=== PATIENT | female | born 1995 | race Caucasian/White ===

== ENCOUNTER 2016-04-18 17:56 | Emergency (ER) | payer OTHER ==
[2016-04-18 18:23] VITALS: BP 137/76
[2016-04-18] MEDS ORDERED: Azithromycin TAB* 250 MG PO ONE (19:47)
[2016-04-18] MEDS ORDERED: cefTRIAXone VIAL(*) 250 MG VIAL IM ONE (19:47)
--- NOTE | 2016-04-18 19:51 | UC ---
Complaint Female HPI - HPI Summary HPI Summary: sexual partner has gonorrhea, she wants testing and treatment. No fever, no abd pain, no vaginal discharge. She has no history of STDs. Does not wish syphilis or HIV testing today. - History Of Current Complaint Chief Complaint: UCSTDScreening Stated Complaint: PERSONAL Time Seen by Provider: 04/18/16 19:38 Hx Obtained From: Patient Hx Last Menstrual Period: 03/27/16 Severity Currently: None - Risk Factors Ectopic Risk Factor: Negative Ovarian Torsion Risk Factor: Reproductive Age - Allergies/Home Medications Allergies/Adverse Reactions: Allergies Allergy/AdvReac Type Severity Reaction Status Date / Time Azithromycin [From Zithromax] Allergy Diarrhea Verified 04/18/16 18:08 Penicillins Allergy Unknown Verified 04/18/16 18:08 Reaction Details PMH/Surg Hx/FS Hx/Imm Hx Endocrine History Of: Reports: Thyroid Disease - Hyperthyroidism: she sees Dr. Diaz and her condition is being monitored., Hyperthyroidism Denies: Diabetes, Hypothyroidism, Dyslipidemia Cardiovascular History Of: Denies: Cardiac Disorders, Hypertension, Pacemaker/ICD, Myocardial Infarction , Congestive Heart Failure, Atrial Fibrillation, Deep Vein Thrombosis, Bleeding Disorders Respiratory History Of: Denies: COPD, Asthma, Bronchitis, Pneumonia, Pulmonary Embolism GI/ History Of: Reports: Renal Disease - 2 years ago kidney failure and then it resolved Denies: Gastroesophageal Reflux, Ulcer, Gastrointestinal Bleed, Gall Bladder Disease, Kidney Stones, Diverticulitis, Urosepsis Neurological History Of: Denies: TIA, CVA, Dementia, Seizures, Migraine Psychological History Of: Reports: Anxiety Denies: Depression, Bipolar Disorder, Schizophrenia, Post Traumatic Stress Disorder Cancer History Of: Denies: Lung Cancer, Colorectal Cancer, Breast Cancer, Prostate Cancer, Cervical Cancer Other History Of: Negative For: HIV, Hepatitis B, Hepatitis C, Anticoagulant Therapy - Surgical History Surgical History: Yes Surgery Procedure, Year, and Place: T&A, right neck lymph node 2014 - Family History Known Family History: Positive: None Negative: Hypertension, Diabetes - Social History Occupation: Employed Full-time Lives: With Family Alcohol Use: None Substance Use Type: None Smoking Status (MU): Never Smoked Tobacco Type: eCigarettes Amount Used/How Often: 20 times a day she uses e-cig Review of Systems Constitutional: Negative Skin: Negative Eyes: Negative ENT: Negative Respiratory: Negative Cardiovascular: Negative Gastrointestinal: Negative Genitourinary: Negative Motor: Negative Neurovascular: Negative Musculoskeletal: Negative Neurological: Negative Psychological: Negative All Other Systems Reviewed And Are Negative: Yes Physical Exam Triage Information Reviewed: Yes Appearance: Well-Appearing, No Pain Distress, Well-Nourished Vital Signs: Initial Vital Signs Temp 98.8 F 04/18/16 18:09 Pulse 90 04/18/16 18:09 Resp 16 04/18/16 18:09 BP 137/76 04/18/16 18:09 Pulse Ox 99 04/18/16 18:09 Vital Signs Reviewed: Yes Eye Exam: Normal Neck exam: Normal Respiratory Exam: Normal Cardiovascular Exam: Normal Musculoskeletal Exam: Normal Neurological Exam: Normal Psychological Exam: Normal Skin Exam: Normal Complaint Female Dx - Course Course Of Treatment: GC/chlamydia RNA testing sent - Differential Dx/Diagnosis Provider Diagnoses: STD exposure Discharge - Discharge Plan Condition: Stable Disposition: HOME Patient Education Materials: Chlamydia (ED), Gonorrhea (ED) Referrals: Racquel Ochoa [Primary Care Provider] - Additional Instructions: You were treated for exposure to gonorrhea. We also routinely treat for chlamydia, as those two infections frequently occur together. Your urine tests for those infections will be available in 3 days. Call here on Saturday if you haven't heard from us. You don't need to do anything more to treat the infection , the one-time treatment you received here tonight is sufficient.
[2016-04-18] MEDS ORDERED: Lidocaine 1% MPF* 2 ML VIAL ONE (20:02)
[2016-04-18] MEDS ORDERED: DOXYcycline CAP(*) 100 MG PO ONE (20:06)
== END 2016-04-18 20:28 | disposition home or self-care (01) ==
LOC: UCCORT 17:56
DX: Z20.2 Contact with and (suspected) exposure to infections with a predominantly sexual mode of transmission (principal); Z88.1 Allergy status to other antibiotic agents; Z88.0 Allergy status to penicillin
CPT/HCPCS: 87491; 87591; 96372; 99212; A9270-GY; G0463; J0696

== ENCOUNTER 2016-05-08 19:03 | Emergency (ER) | payer OTHER ==
[2016-05-08 19:39] VITALS: BP 125/64
--- NOTE | 2016-05-08 21:11 | UC ---
Respiratory Complaint HPI - HPI Summary HPI Summary: 4d of sinus congestion and productive cough. Worse at night. Ely feverish, sweaty at times, but didn't check temp. MIld ST today. Body aches, malaise. Many ill contacts at work. H/o mild asthma. - History of Current Complaint Chief Complaint: UCRespiratory Stated Complaint: COUGH/SORE THROAT/CONGESTION Time Seen by Provider: 05/08/16 20:57 Hx Obtained From: Patient Hx Last Menstrual Period: 04/15/16 Onset/Duration: Gradual Onset, Lasting Days - 4 Timing: Constant Severity Initially: Mild Severity Currently: Mild Character: Cough: Productive - greenish Aggravating Factors: Recumbent Position Alleviating Factors: Bronchodilator Associated Signs And Symptoms: Positive: Chills, Dizziness, URI, Nasal Congestion, Hoarseness - Risk Factors Pulmonary Embolism Risk Factors: Negative Cardiac Risk Factors: Negative Pseudomonas Risk Factors: Negative Tuberculosis Risk Factors: Negative - Allergies/Home Medications Allergies/Adverse Reactions: Allergies Allergy/AdvReac Type Severity Reaction Status Date / Time Azithromycin [From Zithromax] Allergy Diarrhea Verified 05/08/16 19:33 Penicillins Allergy Unknown Verified 05/08/16 19:33 Reaction Details Home Medications: Home Medications Diphenhydramine-Phenylephrine [Delsym Night Time Cough/C] 1 liq PO BEDTIME PRN 05/08/16 [History Confirmed 05/08/16] PMH/Surg Hx/FS Hx/Imm Hx Endocrine History Of: Reports: Thyroid Disease - Hyperthyroidism: she sees Dr. Diaz and her condition is being monitored., Hyperthyroidism Denies: Diabetes, Hypothyroidism, Dyslipidemia Cardiovascular History Of: Denies: Cardiac Disorders, Hypertension, Pacemaker/ICD, Myocardial Infarction , Congestive Heart Failure, Atrial Fibrillation, Deep Vein Thrombosis, Bleeding Disorders Respiratory History Of: Denies: COPD, Asthma, Bronchitis, Pneumonia, Pulmonary Embolism GI/ History Of: Reports: Renal Disease - 2 years ago kidney failure and then it resolved Denies: Gastroesophageal Reflux, Ulcer, Gastrointestinal Bleed, Gall Bladder Disease, Kidney Stones, Diverticulitis, Urosepsis Neurological History Of: Denies: TIA, CVA, Dementia, Seizures, Migraine Psychological History Of: Reports: Anxiety Denies: Depression, Bipolar Disorder, Schizophrenia, Post Traumatic Stress Disorder Cancer History Of: Denies: Lung Cancer, Colorectal Cancer, Breast Cancer, Prostate Cancer, Cervical Cancer Other History Of: Negative For: HIV, Hepatitis B, Hepatitis C, Anticoagulant Therapy - Surgical History Surgical History: Yes Surgery Procedure, Year, and Place: T&A, right neck lymph node 2014 - Family History Known Family History: Positive: None Negative: Hypertension, Diabetes - Social History Occupation: Employed Full-time Lives: With Family Alcohol Use: Occasionally Substance Use Type: None Smoking Status (MU): Never Smoked Tobacco Type: eCigarettes Amount Used/How Often: 20 times a day she uses e-cig - Immunization History Most Recent Influenza Vaccination: not this season Review of Systems Constitutional: Chills, Fatigue Skin: Negative Eyes: Negative ENT: Sore Throat Respiratory: Cough Cardiovascular: Negative Gastrointestinal: Negative Genitourinary: Negative Motor: Negative Neurovascular: Negative Musculoskeletal: Negative Neurological: Negative Psychological: Negative All Other Systems Reviewed And Are Negative: Yes Physical Exam Triage Information Reviewed: Yes Appearance: Well-Appearing, No Pain Distress, Well-Nourished Vital Signs: Initial Vital Signs Temp 98 F 05/08/16 19:35 Pulse 69 05/08/16 19:35 Resp 16 05/08/16 19:35 BP 125/64 05/08/16 19:35 Pulse Ox 99 05/08/16 19:35 Vital Signs Reviewed: Yes Eye Exam: Normal Eyes: Positive: Conjunctiva Clear ENT: Positive: Pharyngeal erythema - mild, Nasal congestion, Nasal drainage, TMs normal, Muffled/hoarse voice - hoarse. Negative: Tonsillar swelling, Tonsillar exudate Neck exam: Normal Neck: Positive: Supple Respiratory Exam: Normal Respiratory: Positive: Lungs clear, Normal breath sounds, No respiratory distress, No accessory muscle use - no cough noted in exam room Cardiovascular Exam: Normal Musculoskeletal Exam: Normal Neurological Exam: Normal Psychological Exam: Normal Skin Exam: Normal Diagnostic Evaluation - Laboratory O2 Sat by Pulse Oximetry: 99 Diagnostic Studies Comment: strep neg Respiratory Course/Dx - Differential Dx/Diagnosis Differential Diagnosis/HQI/PQRI: Bronchitis, Lower Resp Infection Provider Diagnoses: URI Discharge - Discharge Plan Condition: Stable Disposition: HOME Prescriptions: Azithromycin TAB* [Zithromax TAB (Z-JJ) 250 mg #6 tabs] 2 tab PO .TODAY, THEN 1 DAILY #1 jj Guaifenesin-Codeine [Cheratussin AC] 1 - 2 teasp PO Q6HR PRN #120 ml MDD 30ml PRN Reason: Cough Patient Education Materials: Upper Respiratory Infection (ED) Forms: *Work Release Referrals: Racquel Ochoa [Primary Care Provider] -
[2016-05-08] MEDS ORDERED: Benzonatate CAP* 100 MG PO ONE (21:57)
== END 2016-05-08 22:13 | disposition home or self-care (01) ==
LOC: UCCORT 19:03
DX: J06.9 Acute upper respiratory infection, unspecified (principal); Z88.0 Allergy status to penicillin; Z88.1 Allergy status to other antibiotic agents
CPT/HCPCS: 87651; 99212; A9270-GY; G0463

== ENCOUNTER 2016-07-30 18:19 | Emergency (ER) | payer OTHER ==
[2016-07-30 20:11] VITALS: BP 109/55
--- NOTE | 2016-07-30 20:36 | UC ---
Throat Pain/Nasal Darin HPI - HPI Summary HPI Summary: 21 female presents with complaints of nasal congestion, headache, and productive cough that began yesterday 07/29/16. Patient states she took one dayquil but did not have any relief. Last dose early this morning. She denies body aches, abdominal pain, nausea, vomiting and ear pain. Admits to some sinus pressure on sore throat from coughing. Admits to productive cough, phlegm and green in color at times. Denies any fever. Denies known sick contacts. Did not have flu shot this year. - History of Current Complaint Chief Complaint: UCRespiratory Stated Complaint: THROAT,COUGH,CONGESTION Time Seen by Provider: 07/30/16 20:11 Hx Obtained From: Patient Hx Last Menstrual Period: 07/18/16 ?: No Onset/Duration: Sudden Onset, Lasting Days - 1 day Severity: Mild Cough: Productive Associated Signs & Symptoms: Positive: Dysphagia, Sinus Discomfort, Nasal Discharge - Allergies/Home Medications Allergies/Adverse Reactions: Allergies Allergy/AdvReac Type Severity Reaction Status Date / Time Penicillins Allergy Rash Verified 07/30/16 19:55 Azithromycin [From Zithromax] AdvReac Diarrhea Verified 07/30/16 19:55 Home Medications: Home Medications Dextromethorphan-Phenylephrine [Day Time Multi-Symptom Co 10-5-325 mg/15Ml] 1 liq PO PRN 07/30/16 [History] PMH/Surg Hx/FS Hx/Imm Hx Endocrine History Of: Reports: Thyroid Disease - Hyperthyroidism: she sees Dr. Diaz and her condition is being monitored., Hyperthyroidism Denies: Diabetes, Hypothyroidism, Dyslipidemia Cardiovascular History Of: Denies: Cardiac Disorders, Hypertension, Pacemaker/ICD, Myocardial Infarction , Congestive Heart Failure, Atrial Fibrillation, Deep Vein Thrombosis, Bleeding Disorders Respiratory History Of: Denies: COPD, Asthma, Bronchitis, Pneumonia, Pulmonary Embolism GI/ History Of: Reports: Renal Disease - 2 years ago kidney failure and then it resolved Denies: Gastroesophageal Reflux, Ulcer, Gastrointestinal Bleed, Gall Bladder Disease, Kidney Stones, Diverticulitis, Urosepsis Neurological History Of: Denies: TIA, CVA, Dementia, Seizures, Migraine Psychological History Of: Reports: Anxiety Denies: Depression, Bipolar Disorder, Schizophrenia, Post Traumatic Stress Disorder Cancer History Of: Denies: Lung Cancer, Colorectal Cancer, Breast Cancer, Prostate Cancer, Cervical Cancer Other History Of: Negative For: HIV, Hepatitis B, Hepatitis C, Anticoagulant Therapy - Surgical History Surgical History: Yes Surgery Procedure, Year, and Place: T&A, right neck lymph node 2014 - Family History Known Family History: Positive: None Negative: Hypertension, Diabetes - Social History Alcohol Use: Occasionally Substance Use Type: None Smoking Status (MU): Never Smoked Tobacco Type: eCigarettes Amount Used/How Often: former ecigarette user - Immunization History Most Recent Influenza Vaccination: not this season Review of Systems Constitutional: Negative Skin: Negative Eyes: Negative ENT: Sore Throat, Nasal Discharge Respiratory: Cough Cardiovascular: Negative Gastrointestinal: Negative Genitourinary: Negative Musculoskeletal: Negative Neurological: Headache All Other Systems Reviewed And Are Negative: Yes Physical Exam Triage Information Reviewed: Yes Appearance: Well-Appearing - sounded congested upon speaking, No Pain Distress, Well-Nourished Vital Signs: Initial Vital Signs Temp 99 F 07/30/16 19:49 Pulse 85 07/30/16 19:49 Resp 14 07/30/16 19:49 BP 109/55 07/30/16 19:49 Pulse Ox 98 07/30/16 19:49 Vital Signs Reviewed: Yes Eyes: Positive: Conjunctiva Clear ENT: Positive: Normal ENT inspection, Hearing grossly normal, Pharyngeal erythema - post nasal drip noted, Nasal congestion, Nasal drainage, TMs normal. Negative: Tonsillar swelling - tonsillectomy, Trismus, Muffled/hoarse voice Dental: Negative: Percussion Tenderness @, Cervical Lymphadenopathy Neck: Positive: Supple, Nontender, No Lymphadenopathy Respiratory: Positive: Chest non-tender, Lungs clear, Normal breath sounds, No respiratory distress, No accessory muscle use. Negative: Crackles, Rhonchi, Stridor, Wheezing Cardiovascular: Positive: RRR, No Murmur, Pulses Normal, Brisk Capillary Refill Abdominal Exam: Normal Abdomen Description: Positive: Nontender, Soft Bowel Sounds: Positive: Present Musculoskeletal Exam: Normal Neurological Exam: Normal Psychological Exam: Normal Skin Exam: Normal Throat Pain/Nasal Course/Dx - Course Course Of Treatment: due to HPI, PE findings, length of symptoms, presentation and vital signs patient will be treated symptomatically at this time for rhinosinusitis. Tessalon pearls, flonase, Mucinex and ibuprofen. fluids and rest. aware of worsening signs and symptoms. IF symptoms persist or worsen such as fever, told to return. Follow up. Patient requested a work note. - Differential Dx/Diagnosis Differential Diagnosis/HQI/PQRI: Influenza, Otitis Media, Pharyngitis, Sinusitis , Tonsillitis, URI, Other Provider Diagnoses: Rhinosinusitis Discharge - Discharge Plan Condition: Stable Disposition: HOME Prescriptions: Benzonatate CAP* [Tessalon 100 MG CAP*] 100 mg PO TID #20 cap Fluticasone NASAL SPRAY 50MCG* [Flonase NASAL SPRAY 50MCG*] 2 spray BOTH NARES DAILY #1 btl Patient Education Materials: Rhinosinusitis (ED) Forms: *Work Release Referrals: Racquel Ochoa [Primary Care Provider] - Additional Instructions: Use nasal spray twice in the first day and then once daily while symptoms persist. Use saline nasal spray multiple times daily, not at the same time as the flonase. Use prescribed cough suppressant at bedtime to help with cough. Take OTC Mucinex/Antihistamine/Advil as needed. Drink plenty of fluids and get plenty of rest. If symptoms worsen or do not improve please return. Follow up with PCP.
== END 2016-07-30 20:42 | disposition home or self-care (01) ==
LOC: UCCORT 18:19
DX: J32.9 Chronic sinusitis, unspecified (principal); Z88.1 Allergy status to other antibiotic agents; Z88.0 Allergy status to penicillin; E05.90 Thyrotoxicosis, unspecified without thyrotoxic crisis or storm; F41.9 Anxiety disorder, unspecified
CPT/HCPCS: 99211; G0463

== ENCOUNTER → 2016-11-30 10:21 | Emergency (ER) | payer SELFPAY ==
[~2016-11-30 10:21] MED LIST: Ibuprofen TAB* 600 MG PO ONE
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
[2016-11-30 14:10] VITALS: BP 108/68
== END | disposition home or self-care (01) ==
LOC: ED 10:21
DX: S16.1XXA Strain of muscle, fascia and tendon at neck level, initial encounter (principal); R51 Headache; F41.9 Anxiety disorder, unspecified; V43.52XA Car driver injured in collision with other type car in traffic accident, initial encounter; Y93.9 Activity, unspecified; Y92.9 Unspecified place or not applicable
CPT/HCPCS: 70450; 72125; 99281

== ENCOUNTER 2017-03-04 12:20 | Emergency (ER) | payer BC ==
[2017-03-04 12:49] VITALS: BP 128/61
--- NOTE | 2017-03-04 13:07 | UC ---
Respiratory Complaint HPI - HPI Summary HPI Summary: 22 year old female presents with complains of chest congestion and cough. - History of Current Complaint Chief Complaint: UCRespiratory Stated Complaint: CHEST CONGESTION Time Seen by Provider: 03/04/17 12:50 Hx Obtained From: Patient Hx Last Menstrual Period: 07/18/16 Onset/Duration: Gradual Onset Severity Initially: Moderate Severity Currently: Moderate Pain Scale Used: 0-10 Numeric - 4 - Allergies/Home Medications Allergies/Adverse Reactions: Allergies Allergy/AdvReac Type Severity Reaction Status Date / Time Penicillins Allergy Rash Verified 03/04/17 12:49 Azithromycin [From Zithromax] AdvReac Diarrhea Verified 03/04/17 12:49 PMH/Surg Hx/FS Hx/Imm Hx Previously Healthy: Yes Other History Of: Negative For: HIV, Hepatitis B, Hepatitis C, Anticoagulant Therapy - Surgical History Surgical History: Yes Surgery Procedure, Year, and Place: T&A, right neck lymph node 2014 - Family History Known Family History: Positive: None Negative: Hypertension, Diabetes - Social History Alcohol Use: Occasionally Substance Use Type: None Smoking Status (MU): Never Smoked Tobacco Type: eCigarettes Amount Used/How Often: former ecigarette user - Immunization History Most Recent Influenza Vaccination: not this season Review of Systems Constitutional: Negative Skin: Negative Eyes: Negative ENT: Sore Throat, Nasal Discharge, Sinus Congestion, Sinus Pain/Tenderness Respiratory: Cough Cardiovascular: Negative Gastrointestinal: Negative Genitourinary: Negative Motor: Negative Neurovascular: Negative Musculoskeletal: Negative Neurological: Negative Psychological: Negative All Other Systems Reviewed And Are Negative: Yes Physical Exam Triage Information Reviewed: Yes Vital Signs: Initial Vital Signs Temp 36.4 C 03/04/17 12:47 Pulse 73 03/04/17 12:47 Resp 12 03/04/17 12:47 BP 128/61 03/04/17 12:47 Pulse Ox 98 03/04/17 12:47 Vital Signs Reviewed: Yes Eye Exam: Normal ENT Exam: Normal ENT: Positive: Nasal congestion, Nasal drainage, Sinus tenderness Dental Exam: Normal Neck exam: Normal Neck: Positive: 1 Respiratory: Positive: Wheezing Cardiovascular Exam: Normal Abdominal Exam: Normal Musculoskeletal Exam: Normal Neurological Exam: Normal Psychological Exam: Normal Skin Exam: Normal UC Diagnostic Evaluation - Laboratory O2 Sat by Pulse Oximetry: 98 Respiratory Course/Dx - Differential Dx/Diagnosis Provider Diagnoses: sinusitis. chest congestion. wheezing Discharge - Discharge Plan Condition: Stable Disposition: HOME Prescriptions: Albuterol HFA INHALER* [Ventolin HFA Inhaler*] 1 puff INH Q6H PRN #1 mdi PRN Reason: Wheezing DOXYcycline CAP(*) [DOXYcycline 100MG CAP(*)] 100 mg PO BID #20 cap Guaifenesin-Codeine [Cheratussin AC] 1 teasp PO Q8H PRN #120 ml MDD 15 ML PRN Reason: Cough LoraTADine TAB(NF) [Claritin 10 MG TAB(NF)] 10 mg PO DAILY #30 tab Patient Education Materials: Sinusitis (ED) Referrals: Racquel Ochoa [Primary Care Provider] -
== END 2017-03-04 13:16 | disposition home or self-care (01) ==
LOC: UCCORT 12:20
DX: J32.9 Chronic sinusitis, unspecified (principal); R06.2 Wheezing; R09.89 Other specified symptoms and signs involving the circulatory and respiratory systems; Z88.0 Allergy status to penicillin; Z88.1 Allergy status to other antibiotic agents
CPT/HCPCS: 99212; G0463

== ENCOUNTER 2018-05-06 10:07 | Emergency (ER) | payer OTHER ==
[2018-05-06 10:57] VITALS: BP 126/61
--- NOTE | 2018-05-06 11:21 | UC ---
Eye Complaint HPI - HPI Summary HPI Summary: left eye redness x 1 day yellow crusty discharge, no eye pain , no photophobia no change in vision cold symptoms for 4 days, cough , runny nose, pnd, sinus pressure no fever, no chills - History of Current Complaint Chief Complaint: UCGeneralIllness Stated Complaint: COUGH,SINUS SX,EYE REDNESS Time Seen by Provider: 05/06/18 11:13 Hx Obtained From: Patient Hx Last Menstrual Period: 04/29/18 ?: No Onset/Duration: Gradual Onset, Lasting Days - 1, Still Present Timing: Constant Severity Initially: Moderate Severity Currently: Moderate Pain Intensity: 0 Location of Injury: Conjunctiva - left eye Aggravating Factor(s): Nothing Alleviating Factor(s): Nothing Associated Signs And Symptoms: Positive: Drainage (Purulent) - left eye. Negative: Negative, Photophobia, Drainage (Clear), Vision Impairment Bilateral, Vision Impairment Right, Vision Impairment Left - Allergies/Home Medications Allergies/Adverse Reactions: Allergies Allergy/AdvReac Type Severity Reaction Status Date / Time azithromycin Allergy Diarrhea Verified 05/06/18 10:51 Penicillins Allergy Rash Verified 05/06/18 10:51 Home Medications: Home Medications D-Methorphan/PE/Acetaminophen [Daytime Cold-Flu Relief Liquid] 1 dose PO ONCE [History Confirmed 05/06/18] Dm/Acetaminophen/Doxylamine [Nighttime Cold and Flu Liquid] 1 dose PO ONCE 05/06 [History Confirmed 05/06/18] PMH/Surg Hx/FS Hx/Imm Hx Previously Healthy: Yes Other History Of: Negative For: HIV, Hepatitis B, Hepatitis C, Anticoagulant Therapy - Surgical History Surgical History: Yes Surgery Procedure, Year, and Place: T&A, right neck lymph node 2015. L foot surgery - Family History Known Family History: Positive: None Negative: Hypertension, Diabetes - Social History Alcohol Use: None Substance Use Type: None Smoking Status (MU): Never Smoked Tobacco Type: eCigarettes Amount Used/How Often: former ecigarette user - Immunization History Most Recent Influenza Vaccination: not this season Review of Systems All Other Systems Reviewed And Are Negative: Yes Constitutional: Positive: Negative Skin: Positive: Negative Eyes: Positive: Drainage - left eye, Eye Redness - left eye ENT: Positive: Nasal Discharge, Sinus Congestion, Sinus Pain/Tenderness. Negative: Sore Throat, Ear Ache Respiratory: Positive: Negative Is Patient Immunocompromised?: No Physical Exam Triage Information Reviewed: Yes Appearance: Well-Appearing, No Pain Distress, Well-Nourished Vital Signs: Initial Vital Signs Temp 98.2 F 05/06/18 10:53 Pulse 98 05/06/18 10:53 Resp 22 05/06/18 10:53 BP 126/61 05/06/18 10:53 Pulse Ox 98 05/06/18 10:53 Vital Signs Reviewed: Yes Eye Exam: Normal Eyes: Positive: Conjunctiva Inflamed - left eye, Discharge - left eye / yellow and crusty ENT: Positive: Normal ENT inspection, Hearing grossly normal, Pharynx normal, Nasal congestion, Nasal drainage, TMs normal. Negative: TM bulging, TM dull, TM red, Sinus tenderness Neck: Positive: Supple, Nontender, No Lymphadenopathy Respiratory: Positive: Chest non-tender, Lungs clear, Normal breath sounds Cardiovascular: Positive: RRR, No Murmur, Pulses Normal Eye Complaint Course/Dx - Differential Dx/Diagnosis Provider Diagnosis: Conjunctivitis, URI (upper respiratory infection) Discharge - Sign-Out/Discharge Documenting (check all that apply): Patient Departure All imaging exams completed and their final reports reviewed: No Studies - Discharge Plan Condition: Stable Disposition: HOME Prescriptions: Gentamicin 0.3% OPHTH.SOLN* 1 drop LEFT EYE Q4H #1 btl Patient Education Materials: Upper Respiratory Infection (ED), Conjunctivitis ( ED) Referrals: Maite Ly NP [Primary Care Provider] - If Needed - Billing Disposition and Condition Condition: STABLE Disposition: Home
== END 2018-05-06 11:27 | disposition home or self-care (01) ==
LOC: UCCORT 10:07
DX: H10.32 Unspecified acute conjunctivitis, left eye (principal); J06.9 Acute upper respiratory infection, unspecified; Z88.1 Allergy status to other antibiotic agents; Z88.0 Allergy status to penicillin; Z87.891 Personal history of nicotine dependence
CPT/HCPCS: 99212; G0463